=== PATIENT | female | born 1930 | race Caucasian/White ===

== ENCOUNTER 2019-09-01 10:16 | Day surgery (SDC) | payer MEDICARE ==
[2019-09-01] MEDS ORDERED: Depo-Medrol 40 MG/ML IM ONE (10:17)
[2019-09-01] MEDS ORDERED: Marcaine 0.5% SDV 10 ML IJ ONE (10:17)
[2019-09-01] MEDS ORDERED: Ketamine HCl 50 MG/ML ONE (11:47)
[2019-09-01] MEDS ORDERED: DIPRIVAN 200 MG/20 ML IV ONE (11:47)
[2019-09-01] MEDS ORDERED: APRESOLINE 20 MG/ML INJ ONE (12:22)
--- NOTE | 2019-09-01 12:51 | XRAY ---
12 seconds fluoroscopy time in surgery for right intra-articular hip injection.
--- NOTE | 2019-09-01 12:52 | XRAY ---
Indication: Right hip injection. Intraoperative fluoroscopy was provided for 12 seconds. 2 digital spot images submitted for interpretation demonstrates needle tip projecting just lateral to the right femur neck. Small amount of contrast injected for needle tip placement. Correlated with intraoperative findings/report.
[2019-09-01] MEDS ORDERED: Lactated Ringers 1,000 ML IV ONE (18:21)
== END 2019-09-01 12:35 | disposition home or self-care (01) ==
LOC: SDC-PAIN 10:16
PROVIDERS: ATTEND Psychiatry & Neurology Pain Medicine
DX: M16.11 Unilateral primary osteoarthritis, right hip (principal); I10 Essential (primary) hypertension; E11.9 Type 2 diabetes mellitus without complications; F41.8 Other specified anxiety disorders; Z86.73 Personal history of transient ischemic attack (TIA), and cerebral infarction without residual deficits; Z79.899 Other long term (current) drug therapy
CPT/HCPCS: 20610; 73501; 77002; 82962; J0360; J1030; J2704; Q9966